=== PATIENT | female | born 1990 | race Caucasian/White ===

== ENCOUNTER 2016-10-20 07:46 | Emergency (ER) | payer OTHER ==
[~2016-10-20] VITALS: Ht 175.3 cm; Wt 86.2 kg
[~2016-10-20 07:46] MED LIST: BUSP1TAB PO; CETA1LOT EXT; DIPH25CA PO; DOXY10CA PO; FIOR1CAP PO; FISH1000 PO; FLON1SPR; KLON1TAB PO; LAMI25TA PO; LITH300C PO; LITH45TASA PO; MAGN250T11 PO; MAXA10TA15 PO; OLOP1OPD OU; PRAZ2CAP PO; QUET1TAB7 PO; SERT25TA PO; TRAZO50TA PO; VITA100072 PO; VITA500046 PO; YAZ3TAB PO; ZOMI5TAB4 PO; ZYRT10CA PO
[2016-10-20 07:52] VITALS: BP 124/73
[2016-10-20] MEDS ORDERED: PRENTAB13 PO (07:57)
[2016-10-20] MEDS ORDERED: ZOLO100T PO (07:57)
[2016-10-20] MEDS ORDERED: FLUORESCEIN OPHTH 1 MG STRIP As Ordered ONE (08:16)
[2016-10-20] MEDS ORDERED: FLUORESCEIN OPHTH 1 MG STRIP OS ONE (08:30)
== END 2016-10-20 08:45 | disposition home or self-care (01) ==
LOC: M ED 08:41
DX: O99.89 Other specified diseases and conditions complicating pregnancy, childbirth and the puerperium (principal); H11.31 Conjunctival hemorrhage, right eye; O9A.211 Injury, poisoning and certain other consequences of external causes complicating pregnancy, first trimester; S00.211A Abrasion of right eyelid and periocular area, initial encounter; W54.8XXA Other contact with dog, initial encounter; Y92.89 Other specified places as the place of occurrence of the external cause; Y93.84 Activity, sleeping; Y99.8 Other external cause status; O99.341 Other mental disorders complicating pregnancy, first trimester; F31.9 Bipolar disorder, unspecified; Z3A.10 10 weeks gestation of pregnancy; Z88.0 Allergy status to penicillin; Z79.899 Other long term (current) drug therapy